=== PATIENT | male | born 1950 | race Caucasian/White ===

== ENCOUNTER 2023-04-16 09:58 | Emergency (ER) | payer MEDICARE ==
[2023-04-16 10:25] VITALS: RESP 18; TEMP 98.1
[2023-04-16] MEDS ORDERED: IBUPROFEN 800 MG TAB PO STA (10:48)
--- NOTE | 2023-04-16 10:51 | ED ---
General Adult HPI - General Chief complaint: Extremity Problem,Nontraumatic Stated complaint: L foot swelling/pain Time Seen by Provider: 04/16/23 10:31 Source: patient, RN notes reviewed Mode of arrival: ambulatory Limitations: no limitations - History of Present Illness Initial comments: 22-year-old male with no significant past medical history presents to the emergency department with a chief complaint of left foot pain. Patient reports that 04/10/23 she went to bed and woke up with generalized left foot swelling and bruising. He denies any known injury. She denies any numbness, tingling, weakness in the extremity. Denies anticoagulant denies recent long travel. - Related Data Previous Rx's Medication Instructions Recorded HYDROcodone/APAP 5-325MG [Elkins 5] 1 each PO Q6HR PRN #12 tab 04/16/23 Allergies Allergy/AdvReac Type Severity Reaction Status Date / Time amoxicillin Allergy Unknown Verified 04/16/23 10:25 metronidazole [From Flagyl] Allergy Unknown Verified 04/16/23 10:25 Review of Systems ROS Statement: Those systems with pertinent positive or pertinent negative responses have been documented in the HPI. ROS Other: All systems not noted in ROS Statement are negative. Past Medical History Past Medical History: Cancer, Diabetes Mellitus Additional Past Medical History / Comment(s): non hodgkins, type 1 diabetes History of Any Multi-Drug Resistant Organisms: None Reported Past Surgical History: Back Surgery Smoking Status: Never smoker Past Alcohol Use History: Occasional Past Drug Use History: None Reported General Exam - General Exam Comments Initial Comments: General: Alert, in no acute distress Head: atraumatic normocephalic. Eyes PERRL, EOMI intact, mucous membranes moist Respiratory: Lungs clear to auscultation bilaterally Cardiovascular: Heart rate regular rate and rhythm Abdominal: Soft without guarding or rebound Extremities: Normal inspection with full range of motion and normal capillary refill, left foot with generalized swelling and ecchymosis. Limited range of motion due to pain. 2+ DP/PT pulses distal neurovascularly intact Neuroogic: alert and oriented 3, CN II-XII intact, able to ambulate with steady gait Skin: warm dry and intact with normal color Limitations: no limitations Course Vital Signs 04/16/23 04/16/23 10:21 12:06 Temperature 98.1 F Pulse Rate 78 74 Respiratory 18 18 Rate Blood Pressure 119/65 122/53 O2 Sat by Pulse 98 100 Oximetry Medical Decision Making - Medical Decision Making Was pt. sent in by a medical professional or institution (SHYLA Perry, [employer], urgent care, hospital, or retirement...) When possible be specific @ -[No] Did you speak to anyone other than the patient for history (EMS, parent, family, police, friend...)? What history was obtained from this source @ -[No] Did you review nursing and triage notes (agree or disagree)? Why? @ -[I reviewed and agree with nursing and triage notes] Were old charts reviewed (outside hosp., previous admission, EMS record, old EKG, old radiological studies, urgent care reports/EKG's, retirement records)? Report findings @ -[No old charts were reviewed] Differential Diagnosis (chest pain, altered mental status, abdominal pain women, abdominal pain men, vaginal bleeding, weakness, fever, dyspnea, syncope, headache, dizziness, GI bleed, back pain, seizure, CVA, palpatations, mental health, musculoskeletal)? @ -[not applicable] EKG interpreted by me (3pts min.). @ -[As above] X-rays interpreted by me (1pt min.). @ -Acute fractures of the second and third metatarsals CT interpreted by me (1pt min.). @ -[None done] U/S interpreted by me (1pt. min.). @ -[None done] What testing was considered but not performed or refused? (CT, X-rays, U/S, labs)? Why? @ -[None] What meds were considered but not given or refused? Why? @ -[None] Did you discuss the management of the patient with other professionals (professionals i.e. SHYLA Perry, [employer], lab, RT, psych nurse, social media content specialist, whip operator, teacher, weapons officer naval activity, egg caser)? Give summary @ -[No] Was smoking cessation discussed for >3mins.? @ -[No] Was critical care preformed (if so, how long)? @ -[No] Were there social determinants of health that impacted care today? How? (Homelessness, low income, unemployed, alcoholism, drug addiction, transportation, low edu. Level, literacy, decrease access to med. care, residential, rehab)? @ -[No] Was there de-escalation of care discussed even if they declined (Discuss DNR or withdrawal of care, Hospice)? DNR status @ -[No] What co-morbidities impacted this encounter? (DM, HTN, Smoking, COPD, CAD, Can cer, CVA, ARF, Chemo, Hep., AIDS, mental health diagnosis, sleep apnea, morbid obesity)? @ -[None] Was patient admitted / discharged? Hospital course, mention meds given and route, prescriptions, significant lab abnormalities, going to OR and other pertinent info. @ -Discharge. This is a pleasant 72-year-old [facility]. Patient had a thorough history and physical exam performed on the ED. Physical exam reveals generalized swelling and ecchymosis to the dorsal surface of left foot. Limited range of motion secondary to pain. 2+ DP/PT pulses. Patient remains distally neurovascularly intact. Patient had imaging performed which revealed acute fractures of the second and third metatarsal bones with complete displacement at the third and near complete displacement of the second. There is no additional fractures. Patient was placed in a posterior mold and provided crutches upon discharge. Return precautions were discussed. He is given a prescription for number close. Patient discharged in stable condition. Case discussed with Dr. Newton, [facility] who agrees with plan of care Undiagnosed new problem with uncertain prognosis? @ -[No] Drug Therapy requiring intensive monitoring for toxicity (Heparin, Nitro, In sulin, Cardizem)? @ -[No] Were any procedures done? @ -[No] Diagnosis/symptom? @ -Left Foot Pain - 2nd and 3rd Metatarsal Fracture Acute, or Chronic, or Acute on Chronic? @ -Acute Uncomplicated (without systemic symptoms) or Complicated (systemic symptoms)? @ -Uncomplicated Side effects of treatment? @ -[No] Exacerbation, Progression, or Severe Exacerbation? @ -[No] Poses a threat to life or bodily function? How? (Chest pain, [place], [place], pneumonia, PE, COPD, DKA, ARF, appy, cholecystitis, CVA, Diverticulitis, Homicidal, Suicidal, threat to staff... and all critical care pts) @ -Low likelihood Disposition Clinical Impression: Metatarsal bone fracture Disposition: HOME SELF-CARE Condition: Stable Additional Instructions: Please take Elkins for pain as needed Please follow up with orthopedists in 1-2 days Please report to the nearest emergency department if symptoms worsen or persist Prescriptions: HYDROcodone/APAP 5-325MG [Elkins 5] 1 each PO Q6HR PRN #12 tab PRN Reason: Pain Is patient prescribed a controlled substance at d/c from ED?: Yes If prescribed controlled substance>3 days was MAPS reviewed?: Prescribed <3 Days Referrals: None,Stated [REFERRING] - 1-2 days Nicolás Echevarria MD [Medical Doctor] - 1-2 days Time of Disposition: 11:54
--- NOTE | 2023-04-16 11:16 | XR ---
EXAMINATION TYPE: XR foot complete LT, XR ankle complete LT DATE OF EXAM: 04/16/2023 11:07 AM INDICATION: Patient age:Male; 72 years old; Reason for study: pain and swelling; COMPARISON: None TECHNIQUE: The left foot and ankle was examined in the AP, oblique, and lateral projections. FINDINGS/IMPRESSION: Acute fractures of the second and third metatarsals. There is complete displacement of the third and near complete displacement of the second. No additional fractures. The soft tissue swelling.
[2023-04-16 12:10] VITALS: BP 122/53; PULSE 74
== END 2023-04-16 12:37 | disposition home or self-care (01) ==
LOC: EC 09:58
DX: S92.332A Displaced fracture of third metatarsal bone, left foot, initial encounter for closed fracture (principal); S92.312A Displaced fracture of first metatarsal bone, left foot, initial encounter for closed fracture; E11.9 Type 2 diabetes mellitus without complications; Z88.0 Allergy status to penicillin; Z88.8 Allergy status to other drugs, medicaments and biological substances; X58.XXXA Exposure to other specified factors, initial encounter
CPT/HCPCS: 99283